=== PATIENT | male | born 1960 | race Caucasian/White ===

== ENCOUNTER 2022-06-10 23:49 | Inpatient (IN) | payer BC, SELFPAY ==
[2022-06-11 00:24] LABS: White Blood Cell (WBC) Count 21.3 10x3/uL (3.5-10.5)
[2022-06-11 00:25] LABS: Hemoglobin 12.2 g/dL (13.5-17.5); MDiff Complete? YES; Mean Corpuscular Hemoglobin 31.7 pg (27.0-33.0); Mean Corpuscular Volume 90.6 fl (81.2-95.1); Mean Platelet Volume 10.5 fl (7.4-10.4); Platelet Count 471 10x3/uL (150-450); RBC Distribution Width 12.3 % (11.5-14.5); Red Blood Cell (RBC) Count 3.85 10x6/uL (4.32-5.72)
[2022-06-11] MEDS ORDERED: Morphine 4 MG/ML VIAL ONE (01:01)
[2022-06-11] MEDS ORDERED: Ondansetron PF 4 MG/2 ML Vial ONE (01:01)
[2022-06-11] MEDS ORDERED: Acetaminophen 500 MG TAB ONE (01:01)
[2022-06-11] MEDS ORDERED: Piperacillin/Tazobactam 3.375 GM VIAL ONE (01:01)
[2022-06-11 01:07] LABS: Band 10 % (5-11); Lymphocytes 8 % (21-51); Monocytes 9 % (0-10); Neutrophil 73 % (42-75)
[2022-06-11 01:14] LABS: Large Platelets SLIGHT; Microcytosis SLIGHT = 6-15 cells (100X) (0-5/hpf); Ovalocytes SLIGHT = 2-5 cells (100X) (0-1/hpf); Platelet Morphology Comment Appears Adequate
[2022-06-11 01:15] LABS: Vacuoles SLIGHT
[2022-06-11 01:25] LABS: ALT (SGPT) 12 U/L (8-55); AST (SGOT) 20 U/L (5-34); Albumin 3.7 g/dL (3.4-4.8); Alkaline Phosphatase 81 U/L (40-110); Anion Gap 18 mmol/L (10-20); BUN (Urea Nitrogen) 29 mg/dL (8.4-25.7); Bilirubin, Total 0.5 mg/dL (0.2-1.2); Calc. Creatinine Clearance 0 mL/min (70-130); Calcium 8.3 mg/dL (7.8-10.44); Carbon Dioxide 20 mmol/L (23-31); Chloride 97 mmol/L (98-107); Estimated GFR 87; Globulin 1.6 g/dL (2.4-3.5); Glucose 174 mg/dL (80-115); Potassium 2.9 mmol/L (3.5-5.1); Protein, Total 5.3 g/dL (5.8-8.1); Sodium 132 mmol/L (136-145)
[2022-06-11] MEDS ORDERED: Sodium Chloride 0.9% 1,000 ML IV SCH (03:30)
[2022-06-11 03:40] LABS: SARS-CoV-2 NAA Rapid Test Not Detected (NotDetected)
[2022-06-11] MEDS ORDERED: Ondansetron PF 4 MG/2 ML Vial IVP PRN (03:40)
[2022-06-11] MEDS ORDERED: Acetaminophen 650 MG Suppository PR PRN (03:40)
[2022-06-11] MEDS ORDERED: Acetaminophen 325 MG TAB PO PRN (03:40)
[2022-06-11] MEDS ORDERED: Ondansetron ODT 4 MG TAB PO PRN (03:40)
[2022-06-11] MEDS ORDERED: Electrolyte Replacement Protocol 1 EACH FS SCH (03:45)
[2022-06-11 03:52] LABS: Magnesium 1.6 mg/dL (1.6-2.6)
[2022-06-11] MEDS ORDERED: Potassium Chloride 20 MEQ/100 ML PREMIX BAG ONE ×2 (04:16→05:08)
[2022-06-11] MEDS ORDERED: Pantoprazole 40 MG VIAL ONE (05:07)
[2022-06-11] MEDS ORDERED: Bupivacaine/Epinephrine 0.25% 30 ML VIAL ONE (05:17)
[2022-06-11] MEDS ORDERED: ePHEDrine Sulfate 50 MG/10 ML VIAL ONE (05:20)
[2022-06-11] MEDS ORDERED: Fentanyl 250 MCG/5 ML VIAL ONE (05:20)
[2022-06-11] MEDS ORDERED: PROPOFOL 20 ML ONE (05:20)
[2022-06-11 05:42] LABS: Bilirubin Neg (Negative); Blood, Urine 50 (Negative); Clarity Clear (Clear); Glucose, Urine (Dipstick) Normal (Negative); Ketone, Urine 15 mg/dL (Negative); Leukocyte Negative (Negative); Nitrite Negative (Negative); Protein, Urine (Dipstick) 100 mg/dl (Neg-Trace)
[2022-06-11 05:53] LABS: Bacteria/HPF None Seen HPF (None Seen); RBC/HPF 0-3 HPF (0-3); Squamous Epithelial None Seen HPF (0-3); WBC/HPF 0-3 HPF (0-3)
[2022-06-11] MEDS ORDERED: Phenylephrine 10 MG/ML VIAL ONE (06:22)
[2022-06-11] MEDS ORDERED: Glycopyrrolate 0.2 MG/ML 5 ML SYRINGE ONE (08:21)
[2022-06-11] MEDS ORDERED: Iopamidol 300 61% 100 ML VIAL FS ONE (10:46)
[2022-06-11] MEDS ORDERED: Lactated Ringer's 1,000 ML IV SCH (13:15)
[2022-06-11] MEDS ORDERED: Lidocaine 5% Patch TD SCH (13:30)
[2022-06-11 13:41] LABS: Anion Gap 14 mmol/L (10-20); BUN (Urea Nitrogen) 29 mg/dL (8.4-25.7); Calc. Creatinine Clearance 0 mL/min (70-130); Calcium 7.3 mg/dL (7.8-10.44); Carbon Dioxide 20 mmol/L (23-31); Chloride 101 mmol/L (98-107); Estimated GFR 87; Glucose 168 mg/dL (80-115); Magnesium 1.7 mg/dL (1.6-2.6); Potassium 3.7 mmol/L (3.5-5.1); Sodium 131 mmol/L (136-145)
[2022-06-11] MEDS ORDERED: Potassium Chloride 20 MEQ in Premix Bag 1 BAG IVPB SCH ×2 (14:00→16:30)
[2022-06-11] MEDS ORDERED: Magnesium 2 GM/50 ML(in water) 2 GM in Premix Bag 1 BAG IVPB SCH ×2 (14:00→16:30)
[2022-06-11] MEDS ORDERED: Sodium Chloride 0.9% 500 ML IV SCH ×2 (14:00→15:00)
[2022-06-11] MEDS ORDERED: Albumin 25% 25 GM/100 ML BOT IVPB SCH (15:00)
[2022-06-11 15:50] LABS: Mean Corpuscular Volume 95.9 fl (81.2-95.1); Mean Platelet Volume 10.6 fl (7.4-10.4)
[2022-06-11 16:00] LABS: Troponin I Less than 0.010 ng/mL (< 0.028)
[2022-06-11 16:04] VITALS: BMI 18.2
[2022-06-11] MEDS ORDERED: Calcium Gluc 4.6 MEQ/10 ML (100 MG/ML) SLOW IVP ONE (16:15)
[2022-06-11 16:28] LABS: Band 35 % (5-11); Lymphocytes 3 % (21-51); Monocytes 4 % (0-10); Neutrophil 58 % (42-75)
[2022-06-11 16:29] LABS: Platelet Morphology Comment Appears Adequate
[2022-06-11 16:30] LABS: Large Platelets SLIGHT; MDiff Complete? YES
[2022-06-11] MEDS ORDERED: Calcium Gluconate 4.6 MEQ in Sodium Chloride 0.9% 100 ML IVPB SCH (16:30)
[2022-06-11 16:31] LABS: RBC Morphology Normal
[2022-06-11 16:46] LABS: White Blood Cell (WBC) Count 15.6 10x3/uL (3.5-10.5)
[2022-06-11 16:47] LABS: Red Blood Cell (RBC) Count 3.62 10x6/uL (4.32-5.72)
[2022-06-11 16:48] LABS: Hemoglobin 11.3 g/dL (13.5-17.5)
[2022-06-11 16:49] LABS: Mean Corpuscular Hemoglobin 31.2 pg (27.0-33.0)
[2022-06-11 16:50] LABS: Mean Corpuscular HGB CONC 32.6 g/dL (32.0-36.0); Platelet Count 357 10x3/uL (150-450)
[2022-06-11] MEDS: Piperacillin/Tazobactam 3.375 GM in Sodium Chloride 0.9% 100 ML IVPB SCH ×2 (16:51→21:28)
[2022-06-11 16:52] LABS: Lactic Acid 2.9 mmol/L (0.5-2.2)
[2022-06-11] MEDS ORDERED: Sodium Bicarbonate 75 MEQ, Admixture Fee 1 EACH in Dextrose 5% in Water 1,000 ML IV SCH (17:30)
[2022-06-11 17:33] LABS: Sodium 133 mmol/L (136-145)
[2022-06-11 17:34] LABS: Chloride 105 mmol/L (98-107)
[2022-06-11 17:36] LABS: Carbon Dioxide 15 mmol/L (23-31)
[2022-06-11 17:37] LABS: Anion Gap 17 mmol/L (10-20); BUN (Urea Nitrogen) 29 mg/dL (8.4-25.7); Calc. Creatinine Clearance 83 mL/min (70-130); Estimated GFR 93
[2022-06-11 17:38] LABS: Calcium 7.5 mg/dL (7.8-10.44); Glucose 139 mg/dL (80-115)
[2022-06-11] MEDS: Sodium Bicarbonate 75 MEQ, Admixture Fee 1 EACH in Dextrose 5% in Water 1,000 ML IV SCH (18:38)
[2022-06-11] MEDS: Pantoprazole 40 MG VIAL IVP SCH (21:28)
[2022-06-11 22:13] LABS: Anion Gap 13 mmol/L (10-20); BUN (Urea Nitrogen) 28 mg/dL (8.4-25.7); Calc. Creatinine Clearance 84 mL/min (70-130); Calcium 7.6 mg/dL (7.8-10.44); Carbon Dioxide 22 mmol/L (23-31); Chloride 103 mmol/L (98-107); Estimated GFR 95; Glucose 154 mg/dL (80-115); Potassium 3.9 mmol/L (3.5-5.1); Sodium 134 mmol/L (136-145)
[2022-06-12] MEDS: Morphine 4 MG/ML VIAL SLOW IVP PRN (04:08)
[2022-06-12 04:10] LABS: Hemoglobin 9.6 g/dL (13.5-17.5); Mean Corpuscular HGB CONC 33.7 g/dL (32.0-36.0); Mean Corpuscular Hemoglobin 31.7 pg (27.0-33.0); Mean Corpuscular Volume 94.1 fl (81.2-95.1); Mean Platelet Volume 10.7 fl (7.4-10.4); Platelet Count 372 10x3/uL (150-450); RBC Distribution Width 13.2 % (11.5-14.5); Red Blood Cell (RBC) Count 3.03 10x6/uL (4.32-5.72); White Blood Cell (WBC) Count 17.6 10x3/uL (3.5-10.5)
[2022-06-12 04:13] LABS: MDiff Complete? YES; Manual Diff?? YES
[2022-06-12 04:21] LABS: Phosphorus 2.4 mg/dL (2.3-4.7)
[2022-06-12 04:22] LABS: Anion Gap 11 mmol/L (10-20); BUN (Urea Nitrogen) 26 mg/dL (8.4-25.7); Calc. Creatinine Clearance 84 mL/min (70-130); Calcium 7.6 mg/dL (7.8-10.44); Carbon Dioxide 23 mmol/L (23-31); Chloride 103 mmol/L (98-107); Estimated GFR 95; Glucose 136 mg/dL (80-115); Magnesium 2.3 mg/dL (1.6-2.6); Potassium 4.3 mmol/L (3.5-5.1); Sodium 133 mmol/L (136-145)
[2022-06-12 04:59] LABS: Band 38 % (5-11); Lymphocytes 3 % (21-51); Monocytes 5 % (0-10); Neutrophil 54 % (42-75)
[2022-06-12 05:00] LABS: Platelet Morphology Comment Appears Adequate
[2022-06-12 05:05] LABS: Hypochromia SLIGHT = 6-15 cells (100X) (0-5/hpf)
[2022-06-12 05:06] LABS: Dohle Bodies SLIGHT; Toxic Granulation SLIGHT; Vacuoles SLIGHT
[2022-06-12] MEDS: Transdermal Patch Removal TOP SCH (05:20)
[2022-06-12] MEDS: Piperacillin/Tazobactam 3.375 GM in Sodium Chloride 0.9% 100 ML IVPB SCH ×4 (05:20→22:09)
[2022-06-12] MEDS: Sodium Bicarbonate 75 MEQ, Admixture Fee 1 EACH in Dextrose 5% in Water 1,000 ML IV SCH ×2 (08:40→23:51)
[2022-06-12] MEDS: Pantoprazole 40 MG VIAL IVP SCH ×2 (08:40→20:35)
[2022-06-12] MEDS: Lidocaine 5% Patch TD SCH (17:01)
[2022-06-13 04:07] LABS: Anion Gap 11 mmol/L (10-20); BUN (Urea Nitrogen) 21 mg/dL (8.4-25.7); Calc. Creatinine Clearance 80 mL/min (70-130); Carbon Dioxide 26 mmol/L (23-31); Chloride 100 mmol/L (98-107); Estimated GFR 89; Glucose 122 mg/dL (80-115); Potassium 3.6 mmol/L (3.5-5.1); Sodium 133 mmol/L (136-145)
[2022-06-13 04:14] LABS: #Neutrophils 14.8 10x3/uL (1.5-8.4); %Basophils 0.1 % (0.0-2.0); %Eosinophils 0.1 % (0.0-6.0); %Lymphocytes 8.5 % (18.0-47.0); %Monocytes 5.7 % (0.0-10.0); %Neutrophils 84.6 % (40.0-75.0); Hemoglobin 9.3 g/dL (13.5-17.5); Mean Corpuscular HGB CONC 34.1 g/dL (32.0-36.0); Mean Corpuscular Hemoglobin 31.7 pg (27.0-33.0); Mean Corpuscular Volume 93.2 fl (81.2-95.1); Mean Platelet Volume 10.5 fl (7.4-10.4); Platelet Count 384 10x3/uL (150-450); RBC Distribution Width 13.4 % (11.5-14.5); Red Blood Cell (RBC) Count 2.93 10x6/uL (4.32-5.72); White Blood Cell (WBC) Count 17.4 10x3/uL (3.5-10.5)
[2022-06-13] MEDS: Piperacillin/Tazobactam 3.375 GM in Sodium Chloride 0.9% 100 ML IVPB SCH ×3 (05:31→20:59)
[2022-06-13] MEDS: Transdermal Patch Removal TOP SCH (05:55)
[2022-06-13] MEDS: Pantoprazole 40 MG VIAL IVP SCH ×2 (07:59→20:58)
[2022-06-13] MEDS: Sodium Bicarbonate 75 MEQ, Admixture Fee 1 EACH in Dextrose 5% in Water 1,000 ML IV SCH (13:19)
[2022-06-13] MEDS: Lidocaine 5% Patch TD SCH (20:58)
[2022-06-14] MEDS: Lidocaine 5% Patch TD SCH ×2 (02:46→19:21)
[2022-06-14] MEDS: Sodium Bicarbonate 75 MEQ, Admixture Fee 1 EACH in Dextrose 5% in Water 1,000 ML IV SCH (02:47)
[2022-06-14 03:26] LABS: #Eosinphils 0.2 10x3/uL (0.0-0.5); #Monocytes 0.9 10x3/uL (0.0-1.1); %Basophils 0.1 % (0.0-2.0); %Eosinophils 1.2 % (0.0-6.0); %Lymphocytes 8.1 % (18.0-47.0); %Monocytes 5.3 % (0.0-10.0); %Neutrophils 84.6 % (40.0-75.0); Hemoglobin 8.9 g/dL (13.5-17.5); Mean Corpuscular HGB CONC 34.5 g/dL (32.0-36.0); Mean Corpuscular Hemoglobin 31.7 pg (27.0-33.0); Mean Corpuscular Volume 91.8 fl (81.2-95.1); Platelet Count 414 10x3/uL (150-450); RBC Distribution Width 12.9 % (11.5-14.5); Red Blood Cell (RBC) Count 2.81 10x6/uL (4.32-5.72); White Blood Cell (WBC) Count 16.5 10x3/uL (3.5-10.5)
[2022-06-14 03:48] LABS: Anion Gap 13 mmol/L (10-20); BUN (Urea Nitrogen) 20 mg/dL (8.4-25.7); Calc. Creatinine Clearance 92 mL/min (70-130); Calcium 8.1 mg/dL (7.8-10.44); Carbon Dioxide 25 mmol/L (23-31); Chloride 98 mmol/L (98-107); Estimated GFR 98; Glucose 116 mg/dL (80-115); Magnesium 2.3 mg/dL (1.6-2.6); Potassium 3.4 mmol/L (3.5-5.1); Sodium 133 mmol/L (136-145)
[2022-06-14] MEDS: Piperacillin/Tazobactam 3.375 GM in Sodium Chloride 0.9% 100 ML IVPB SCH ×3 (06:04→21:54)
[2022-06-14] MEDS: Potassium Chloride 20 MEQ in Premix Bag 1 BAG IVPB SCH ×2 (06:04→08:02)
[2022-06-14] MEDS: Pantoprazole 40 MG VIAL IVP SCH ×2 (08:02→21:54)
[2022-06-14] MEDS: Dextrose 5 % And 0.9 % NaCl 1,000 ML IV SCH (15:13)
[2022-06-15] MEDS: Morphine 4 MG/ML VIAL SLOW IVP PRN ×2 (03:54→17:10)
[2022-06-15] MEDS: Dextrose 5 % And 0.9 % NaCl 1,000 ML IV SCH ×2 (03:57→21:29)
[2022-06-15 04:08] LABS: #Eosinphils 0.1 10x3/uL (0.0-0.5); #Monocytes 1.1 10x3/uL (0.0-1.1); #Neutrophils 11.1 10x3/uL (1.5-8.4); %Basophils 0.1 % (0.0-2.0); %Lymphocytes 10.9 % (18.0-47.0); %Monocytes 8.1 % (0.0-10.0); Mean Corpuscular HGB CONC 33.2 g/dL (32.0-36.0); Mean Corpuscular Hemoglobin 30.7 pg (27.0-33.0); Mean Corpuscular Volume 92.5 fl (81.2-95.1); Mean Platelet Volume 9.6 fl (7.4-10.4); Platelet Count 526 10x3/uL (150-450); Red Blood Cell (RBC) Count 2.93 10x6/uL (4.32-5.72)
[2022-06-15 04:18] LABS: Anion Gap 12 mmol/L (10-20); BUN (Urea Nitrogen) 22 mg/dL (8.4-25.7); Calc. Creatinine Clearance 92 mL/min (70-130); Calcium 8.4 mg/dL (7.8-10.44); Carbon Dioxide 25 mmol/L (23-31); Chloride 98 mmol/L (98-107); Estimated GFR 98; Glucose 105 mg/dL (80-115); Potassium 3.4 mmol/L (3.5-5.1); Sodium 132 mmol/L (136-145)
[2022-06-15] MEDS: Piperacillin/Tazobactam 3.375 GM in Sodium Chloride 0.9% 100 ML IVPB SCH ×3 (05:40→21:24)
[2022-06-15] MEDS: Transdermal Patch Removal TOP SCH ×2 (05:40→12:07)
[2022-06-15] MEDS: Pantoprazole 40 MG VIAL IVP SCH ×2 (08:01→21:24)
[2022-06-15] MEDS: Potassium Chloride 20 MEQ in Premix Bag 1 BAG IVPB SCH ×2 (08:01→13:26)
[2022-06-15] MEDS: Lidocaine 5% Patch TD SCH (17:08)
[2022-06-16] MEDS: Transdermal Patch Removal TOP SCH (05:15)
[2022-06-16] MEDS: Piperacillin/Tazobactam 3.375 GM in Sodium Chloride 0.9% 100 ML IVPB SCH ×3 (05:15→22:19)
[2022-06-16] MEDS: Pantoprazole 40 MG VIAL IVP SCH ×2 (09:22→20:12)
[2022-06-16] MEDS: Dextrose 5 % And 0.9 % NaCl 1,000 ML IV SCH ×2 (09:22→20:12)
[2022-06-16 15:30] LABS: Potassium 3.2 mmol/L (3.5-5.1)
[2022-06-16] MEDS: Lidocaine 5% Patch TD SCH (18:21)
[2022-06-16] MEDS: Potassium Chloride 20 MEQ in Premix Bag 1 BAG IVPB SCH ×2 (18:21→20:12)
[2022-06-16] MEDS: Enalaprilat Dihydrate 1.25 MG/ML VIAL SLOW IVP SCH ×2 (18:21→23:05)
[2022-06-17] MEDS: Morphine 4 MG/ML VIAL SLOW IVP PRN (04:13)
[2022-06-17 04:15] LABS: #Basophils 0.1 10x3/uL (0.0-0.2); #Eosinphils 0.2 10x3/uL (0.0-0.5); #Monocytes 1.3 10x3/uL (0.0-1.1); #Neutrophils 11.6 10x3/uL (1.5-8.4); %Basophils 0.3 % (0.0-2.0); %Eosinophils 1.6 % (0.0-6.0); %Lymphocytes 9.9 % (18.0-47.0); %Monocytes 8.6 % (0.0-10.0); %Neutrophils 77.8 % (40.0-75.0); Hemoglobin 9.3 g/dL (13.5-17.5); Mean Corpuscular HGB CONC 32.4 g/dL (32.0-36.0); Mean Corpuscular Volume 95.7 fl (81.2-95.1); Mean Platelet Volume 9.5 fl (7.4-10.4); Platelet Count 619 10x3/uL (150-450); RBC Distribution Width 13.6 % (11.5-14.5); White Blood Cell (WBC) Count 14.9 10x3/uL (3.5-10.5)
[2022-06-17 04:20] LABS: Anion Gap 18 mmol/L (10-20); BUN (Urea Nitrogen) 30 mg/dL (8.4-25.7); Calc. Creatinine Clearance 81 mL/min (70-130); Calcium 9.2 mg/dL (7.8-10.44); Carbon Dioxide 23 mmol/L (23-31); Chloride 107 mmol/L (98-107); Estimated GFR 90; Glucose 100 mg/dL (80-115); Potassium 4.5 mmol/L (3.5-5.1); Sodium 143 mmol/L (136-145)
[2022-06-17] MEDS: Piperacillin/Tazobactam 3.375 GM in Sodium Chloride 0.9% 100 ML IVPB SCH ×3 (06:34→21:36)
[2022-06-17] MEDS: Enalaprilat Dihydrate 1.25 MG/ML VIAL SLOW IVP SCH ×3 (06:35→21:37)
[2022-06-17] MEDS: Pantoprazole 40 MG VIAL IVP SCH ×2 (09:36→21:31)
[2022-06-17] MEDS: Transdermal Patch Removal TOP SCH (10:05)
[2022-06-17] MEDS: Dextrose 5 % And 0.9 % NaCl 1,000 ML IV SCH (10:20)
[2022-06-17] MEDS ORDERED: Bupivacaine/Epinephrine 0.25% 30 ML VIAL ONE (14:33)
[2022-06-17] MEDS ORDERED: Piperacillin/Tazobactam 3.375 GM VIAL ONE (14:48)
[2022-06-17] MEDS ORDERED: Ondansetron PF 4 MG/2 ML Vial ONE (14:48)
[2022-06-17] MEDS ORDERED: Famotidine/PF 20 mg/2ml Vial ONE (14:49)
[2022-06-17] MEDS ORDERED: Fentanyl 250 MCG/5 ML VIAL ONE ×2 (15:11→16:36)
[2022-06-17] MEDS ORDERED: PROPOFOL 20 ML ONE (15:11)
[2022-06-17] MEDS ORDERED: SUGAMMADEX SODIUM 200 MG/2 ML VIAL ONE (15:14)
[2022-06-17] MEDS ORDERED: Phenylephrine 10 MG/ML VIAL ONE (15:15)
[2022-06-17] MEDS ORDERED: Rocuronium Bromide 10 MG/ML (10ML VIAL) ONE (15:42)
[2022-06-17] MEDS ORDERED: Lidocaine 1% PF 5 ML VIAL ONE (15:42)
[2022-06-17] MEDS ORDERED: Bupivacaine PF 0.5% 30 ML VIAL ONE (16:42)
[2022-06-17] MEDS ORDERED: Albumin 5% 250 ML ONE (16:54)
[2022-06-17] MEDS ORDERED: HYDROmorphone 0.5 MG/0.5 ML SYRINGE ONE (18:00)
[2022-06-17] MEDS ORDERED: FENTANYL 500 MCG/10 ML VIAL 1,000 MCG in Sodium Chloride 0.9% 30 ML IV PRN (19:30)
[2022-06-17] MEDS ORDERED: Promethazine HCl 25 MG/ML VIAL IM PRN (19:30)
[2022-06-17] MEDS ORDERED: Ondansetron PF 4 MG/2 ML Vial IVP PRN (19:30)
[2022-06-17] MEDS ORDERED: diphenhydrAMINE 25 MG CAP PO PRN (19:30)
[2022-06-17] MEDS ORDERED: Naloxone HCl 0.4 mg/ml Vial IV PRN (19:30)
[2022-06-17] MEDS ORDERED: diphenhydrAMINE 50 MG/ML VIAL IM/IV PRN (19:30)
[2022-06-17] MEDS: Lidocaine 5% Patch TD SCH (21:37)
[2022-06-17] MEDS: Ketorolac Tromethamine 30 MG/ML VIAL IVP SCH (23:42)
[2022-06-18] MEDS: Enalaprilat Dihydrate 1.25 MG/ML VIAL SLOW IVP SCH ×4 (00:03→18:34)
[2022-06-18] MEDS: Dextrose 5 % And 0.9 % NaCl 1,000 ML IV SCH ×3 (02:12→18:43)
[2022-06-18] MEDS: Piperacillin/Tazobactam 3.375 GM in Sodium Chloride 0.9% 100 ML IVPB SCH ×2 (05:38→13:49)
[2022-06-18] MEDS: Ketorolac Tromethamine 30 MG/ML VIAL IVP SCH ×3 (05:45→18:34)
[2022-06-18] MEDS: Transdermal Patch Removal TOP SCH (06:03)
[2022-06-18] MEDS: Pantoprazole 40 MG VIAL IVP SCH ×2 (09:43→21:34)
[2022-06-18 10:09] LABS: #Monocytes 1.3 10x3/uL (0.0-1.1); %Basophils 0.2 % (0.0-2.0); %Eosinophils 0.1 % (0.0-6.0); %Lymphocytes 7.4 % (18.0-47.0); %Monocytes 8.4 % (0.0-10.0); %Neutrophils 82.8 % (40.0-75.0); Hemoglobin 6.6 g/dL (13.5-17.5); Mean Corpuscular Hemoglobin 31.3 pg (27.0-33.0); Mean Corpuscular Volume 97.6 fl (81.2-95.1); Mean Platelet Volume 9.6 fl (7.4-10.4); Platelet Count 520 10x3/uL (150-450); RBC Distribution Width 14.2 % (11.5-14.5); Red Blood Cell (RBC) Count 2.11 10x6/uL (4.32-5.72); White Blood Cell (WBC) Count 15.7 10x3/uL (3.5-10.5)
[2022-06-18 10:40] LABS: Anion Gap 16 mmol/L (10-20); BUN (Urea Nitrogen) 25 mg/dL (8.4-25.7); Calc. Creatinine Clearance 82 mL/min (70-130); Calcium 7.7 mg/dL (7.8-10.44); Carbon Dioxide 23 mmol/L (23-31); Chloride 110 mmol/L (98-107); Estimated GFR 91; Glucose 120 mg/dL (80-115); Potassium 3.7 mmol/L (3.5-5.1); Sodium 145 mmol/L (136-145)
[2022-06-18] MEDS ORDERED: Polyethylene Glycol 3350 17 GM Packet PO SCH (14:00)
[2022-06-18] MEDS ORDERED: Morphine 2 MG/ML VIAL SLOW IVP PRN (16:24)
[2022-06-18] MEDS ORDERED: HYDROcodone/Acetaminophen 7.5/325 mg Tablet PO PRN (16:24)
[2022-06-18] MEDS: Lidocaine 5% Patch TD SCH (18:35)
[2022-06-19] MEDS: Piperacillin/Tazobactam 3.375 GM in Sodium Chloride 0.9% 100 ML IVPB SCH ×4 (00:58→22:32)
[2022-06-19] MEDS: Enalaprilat Dihydrate 1.25 MG/ML VIAL SLOW IVP SCH ×4 (00:58→18:52)
[2022-06-19] MEDS: Ketorolac Tromethamine 30 MG/ML VIAL IVP SCH ×4 (00:59→18:51)
[2022-06-19 03:52] LABS: Anion Gap 10 mmol/L (10-20); BUN (Urea Nitrogen) 29 mg/dL (8.4-25.7); Calc. Creatinine Clearance 80 mL/min (70-130); Calcium 7.6 mg/dL (7.8-10.44); Carbon Dioxide 23 mmol/L (23-31); Chloride 110 mmol/L (98-107); Estimated GFR 89; Glucose 139 mg/dL (80-115); Potassium 3.2 mmol/L (3.5-5.1); Sodium 140 mmol/L (136-145)
[2022-06-19 04:20] LABS: #Eosinphils 0.1 10x3/uL (0.0-0.5); #Monocytes 1.1 10x3/uL (0.0-1.1); #Neutrophils 13.2 10x3/uL (1.5-8.4); %Basophils 0.1 % (0.0-2.0); %Eosinophils 0.4 % (0.0-6.0); %Lymphocytes 6.9 % (18.0-47.0); %Monocytes 7.1 % (0.0-10.0); %Neutrophils 84.4 % (40.0-75.0); Hemoglobin 7.9 g/dL (13.5-17.5); Mean Corpuscular HGB CONC 33.2 g/dL (32.0-36.0); Mean Corpuscular Hemoglobin 30.7 pg (27.0-33.0); Mean Corpuscular Volume 92.6 fl (81.2-95.1); Mean Platelet Volume 9.8 fl (7.4-10.4); Platelet Count 444 10x3/uL (150-450); RBC Distribution Width 15.2 % (11.5-14.5); Red Blood Cell (RBC) Count 2.57 10x6/uL (4.32-5.72); White Blood Cell (WBC) Count 15.7 10x3/uL (3.5-10.5)
[2022-06-19] MEDS ORDERED: Potassium Bicarbonate/Cit Ac 20 MEQ TAB PO SCH (04:45)
[2022-06-19] MEDS: Dextrose 5 % And 0.9 % NaCl 1,000 ML IV SCH ×2 (06:37→15:03)
[2022-06-19] MEDS: Transdermal Patch Removal TOP SCH (07:35)
[2022-06-19] MEDS: Pantoprazole 40 MG VIAL IVP SCH ×2 (10:56→22:33)
[2022-06-19] MEDS: Polyethylene Glycol 3350 17 GM Packet PO SCH (10:56)
[2022-06-19] MEDS: Lidocaine 5% Patch TD SCH (18:52)
[2022-06-20] MEDS: Enalaprilat Dihydrate 1.25 MG/ML VIAL SLOW IVP SCH ×4 (00:31→17:42)
[2022-06-20 04:33] LABS: #Eosinphils 0.4 10x3/uL (0.0-0.5); #Monocytes 0.7 10x3/uL (0.0-1.1); #Neutrophils 8.1 10x3/uL (1.5-8.4); %Basophils 0.3 % (0.0-2.0); %Eosinophils 3.6 % (0.0-6.0); %Lymphocytes 12.3 % (18.0-47.0); %Monocytes 6.8 % (0.0-10.0); %Neutrophils 75.9 % (40.0-75.0); Hemoglobin 7.1 g/dL (13.5-17.5); Mean Corpuscular HGB CONC 32.7 g/dL (32.0-36.0); Mean Corpuscular Hemoglobin 30.6 pg (27.0-33.0); Mean Corpuscular Volume 93.5 fl (81.2-95.1); Mean Platelet Volume 9.3 fl (7.4-10.4); Platelet Count 354 10x3/uL (150-450); Red Blood Cell (RBC) Count 2.32 10x6/uL (4.32-5.72); White Blood Cell (WBC) Count 10.6 10x3/uL (3.5-10.5)
[2022-06-20 04:48] LABS: ALT (SGPT) 14 U/L (8-55); AST (SGOT) 23 U/L (5-34); Albumin 2.4 g/dL (3.4-4.8); Alkaline Phosphatase 42 U/L (40-110); Anion Gap 10 mmol/L (10-20); BUN (Urea Nitrogen) 23 mg/dL (8.4-25.7); Bilirubin, Total 0.5 mg/dL (0.2-1.2); Calc. Creatinine Clearance 82 mL/min (70-130); Calcium 7.4 mg/dL (7.8-10.44); Carbon Dioxide 25 mmol/L (23-31); Chloride 106 mmol/L (98-107); Estimated GFR 91; Glucose 120 mg/dL (80-115); Potassium 3.6 mmol/L (3.5-5.1); Protein, Total 4.4 g/dL (5.8-8.1); Sodium 137 mmol/L (136-145)
[2022-06-20] MEDS: Piperacillin/Tazobactam 3.375 GM in Sodium Chloride 0.9% 100 ML IVPB SCH ×3 (06:22→20:59)
[2022-06-20] MEDS: Transdermal Patch Removal TOP SCH (06:28)
[2022-06-20] MEDS: Pantoprazole 40 MG VIAL IVP SCH ×2 (10:18→20:58)
[2022-06-20] MEDS: Polyethylene Glycol 3350 17 GM Packet PO SCH (10:18)
[2022-06-20] MEDS: Lidocaine 5% Patch TD SCH (17:42)
[2022-06-20] MEDS: Dextrose 5 % And 0.9 % NaCl 1,000 ML IV SCH ×3 (21:01→21:17)
[2022-06-21] MEDS: Enalaprilat Dihydrate 1.25 MG/ML VIAL SLOW IVP SCH ×3 (00:30→13:18)
[2022-06-21] MEDS: Piperacillin/Tazobactam 3.375 GM in Sodium Chloride 0.9% 100 ML IVPB SCH ×2 (05:44→15:21)
[2022-06-21] MEDS: Transdermal Patch Removal TOP SCH (05:45)
[2022-06-21] MEDS: Dextrose 5 % And 0.9 % NaCl 1,000 ML IV SCH (08:01)
[2022-06-21] MEDS: Polyethylene Glycol 3350 17 GM Packet PO SCH (09:43)
[2022-06-21] MEDS: Pantoprazole 40 MG VIAL IVP SCH (09:43)
[2022-06-21 16:43] VITALS: BP 137/77; TEMP 97.8
== END 2022-06-21 18:00 | disposition home or self-care (01) | DRG 853 ==
LOC: CSHERS 23:49 → CSHERHOLD 06-11 05:10 → CSHTELE 06-11 10:19 → CSHIMCU 06-11 15:51 → CSHTELE 06-14 14:33
PROVIDERS: ADMIT Student in an Organized Health Care Education/Training Program; ATTEND Hospitalist
PROC: 0DQ94ZZ Repair Duodenum, Percutaneous Endoscopic Approach (ICD-10-PCS; 2022-06-11)
PROC: 0DU947Z Supplement Duodenum with Autologous Tissue Substitute, Percutaneous Endoscopic Approach (ICD-10-PCS; 2022-06-11)
PROC: 8E0W4CZ Robotic Assisted Procedure of Trunk Region, Percutaneous Endoscopic Approach (ICD-10-PCS; 2022-06-11)
PROC: 0D160Z9 Bypass Stomach to Duodenum, Open Approach (ICD-10-PCS; principal; 2022-06-17)
PROC: 0DB70ZZ Excision of Stomach, Pylorus, Open Approach (ICD-10-PCS; 2022-06-17)
PROC: 30233N1 Transfusion of Nonautologous Red Blood Cells into Peripheral Vein, Percutaneous Approach (ICD-10-PCS; 2022-06-18)
DX: A41.9 Sepsis, unspecified organism (principal); K26.1 Acute duodenal ulcer with perforation; K65.9 Peritonitis, unspecified; E87.1 Hypo-osmolality and hyponatremia; R18.8 Other ascites; E87.20 Acidosis, unspecified; D62 Acute posthemorrhagic anemia; Z20.822 Contact with and (suspected) exposure to COVID-19; K29.70 Gastritis, unspecified, without bleeding; I10 Essential (primary) hypertension; E78.5 Hyperlipidemia, unspecified; G89.29 Other chronic pain; M54.9 Dorsalgia, unspecified; D64.9 Anemia, unspecified; E87.6 Hypokalemia; I95.9 Hypotension, unspecified; F41.9 Anxiety disorder, unspecified; Z87.891 Personal history of nicotine dependence
CPT/HCPCS: 36415; 36430; 71045; 74177; 76705; 80048; 80053; 81003; 81015; 83605; 83690; 83735; 84100; 84132; 84484; 85025; 86850; 86900; 86901; 87040; 87086; 87811; 88307; 93005; 93010; 94760; 94762; 94799; 96361; 96365; 96366; 96367; 96375; A4649; C1776; C9113; J1170; J1885; J2270; J2370; J2405; J2543; J2704; J3010; J3475; J3480; J3490; J7030; J7042; J7070; P9016; P9045; P9047; Q9967; S0020; S0028; U0002